=== PATIENT | male | born 1955 | race American Indian/Alaskan Native ===

== ENCOUNTER 2021-01-09 08:29 | Day surgery (SDC) | payer MEDICARE ==
[~2021-01-09 08:29] MED LIST: WATER FOR IRRIG STERILE 2000 ML IR ONE
[2021-01-09] MEDS ORDERED: ceFAZolin/STERILE WATER 2 GM/20 ML SYRINGE IV NR (09:00)
[2021-01-09] MEDS ORDERED: LACTATED RINGERS 1,000 ML ONE (09:06)
--- NOTE | 2021-01-09 09:10 | Anesthesia Day of Surgery ---
Anesthesia Day of Surgery - Day of Surgery Patient Examined: Yes Patient H&P Reviewed: Yes Patient is NPO: Yes
--- NOTE | 2021-01-09 09:10 | Anesthesia Consultation ---
Anesthesia Consult and Med Hx Date of service: 01/09/21 - Airway Anesthetic Teeth Evaluation: Partials (Many missing teeth) ROM Head & Neck: Adequate Mental/Hyoid Distance: Adequate Mallampati Class: Class I Intubation Access Assessment: Good - Pre-Operative Health Status ASA Pre-Surgery Classification: ASA2 Proposed Anesthetic Plan: General - Pulmonary Hx Smoking: Yes (QUIT 2008) Hx Respiratory Symptoms: No (+2FS) Hx Sleep Apnea: No (SNORES- HIGH ON TONYA PRESCREEN) - Cardiovascular System Hx Hypertension: Yes (White coat HTN; also has hip pain to increase BP) Hx Heart Attack/AMI: No - Central Nervous System Hx Seizures: No Hx Back Pain: Yes (BACK AND NECK ,2 BULGING DISC BACK) Hx Psychiatric Problems: No - Endocrine Hx End Stage Renal Disease: No - Hematic Hx Anemia: No Hx Sickle Cell Disease: No - Other Systems Hx Alcohol Use: No Hx Substance Use: No Hx Cancer: No (ELEVATED PSA.2018 BX PROSTATE NO CANCER)
[2021-01-09] MEDS ORDERED: LACTATED RINGERS 1,000 ML IV SCH (09:15)
[2021-01-09] MEDS ORDERED: propofoL 200 MG/20 ML VIAL IV ONE (09:24)
[2021-01-09] MEDS ORDERED: LIDOCAINE MPF (2%) 20 MG/1 ML VIAL 5 ML ONE (09:24)
[2021-01-09] MEDS ORDERED: MIDAZOLAM 2 MG/2 ML INJ IV NR (10:00)
[2021-01-09] MEDS ORDERED: ONDANSETRON 4 MG/2 ML INJ IV PRN (10:00)
[2021-01-09] MEDS ORDERED: HYDROmorphone 1 MG/1 ML INJ IV PRN (10:00)
[2021-01-09] MEDS ORDERED: WATER FOR IRRIG STERILE 2000 ML IR ONE (10:36)
[2021-01-09] MEDS ORDERED: ONDANSETRON 4 MG/2 ML INJ ONE (10:41)
--- NOTE | 2021-01-09 11:00 | Operative Report ---
DATE OF SURGERY: 01/09/2021 PREOPERATIVE DIAGNOSES: History of urethral stricture disease with obstructive urinary symptoms. POSTOPERATIVE DIAGNOSES: History of urethral stricture disease with obstructive urinary symptoms. OPERATIVE PROCEDURES: Cystoscopy, urethral dilation. ATTENDING: Gary Brandt MD ASSISTANTS: None. ANESTHESIA: General. SPECIMENS: None. COMPLICATIONS: None. DRAINS: None. ESTIMATED BLOOD LOSS: 5 mL. INDICATIONS FOR PROCEDURE: The patient is a 65-year-old man with a history of urethral stricture disease, who presented with worsening obstructive urinary symptoms. He was brought to the operating room for cystoscopy and urethral dilation and all other indicated procedures. DESCRIPTION OF PROCEDURE IN DETAIL: After induction of suitable anesthesia and proper positioning and preparation in the dorsal lithotomy position, a 22-Green[place]ic cystoscope was used to enter the urethra under direct visualization. At the bulbar/membranous urethra, an approximately 15-Green[place]ic urethral stricture was encountered. This was dilated with the cystoscope sheath. We were able to dilate this stricture with the sheath on its own. A wire was in place in case needed, which was not. We then completed the cystoscopic examination. There were no bladder or urethral mucosal lesions. The patient did also have an enlarged prostate with trilobar hypertrophy. He may also benefit from outlet reduction to help with his urinary symptoms. We will first see how he responds to this dilation to determine if outlet reduction would also help his obstructive urinary symptoms. Once complete, the cystoscope was removed and a [place] catheter was not placed. The patient was then awakened from anesthesia and transferred to the recovery room in stable condition. He tolerated the procedure well. He will return to the office in 2 weeks to reassess his symptoms and discuss next steps if needed. TID: [id number] RECEIPT: [id number] ROMMEL/CHAPIS
[2021-01-09] MEDS: HYDROmorphone 1 MG/1 ML INJ IV PRN ×2 (11:23→12:17)
--- NOTE | 2021-01-09 15:18 | XRay Report ---
ABDOMEN 1 VIEW(S) INDICATION / CLINICAL INFORMATION: URETHRAL STRICTURE. COMPARISON: None available. FINDINGS: TUBES / LINES: None. BOWEL GAS PATTERN: No significant abnormality. FREE AIR / EXTRALUMINAL GAS: None seen. ADDITIONAL FINDINGS: This exam was scheduled for retrograde urography. This was not performed. 2 seco nds of fluoroscopy time was utilized. 1 fluoroscopic image of the abdomen is presented. IMPRESSION: No significant abnormality. Signer Name: Pelon Campos Jr, MD Signed: 01/09/2021 3:14 PM Workstation Name: [id number]
--- NOTE | 2021-01-09 15:51 | Post Anesthesia Evaluation ---
- Post Anesthesia Evaluation Patient Participated: Yes Airway Patent: Yes Stable Respiratory Function: Yes Nausea/Vomiting: No Temp > 96.8F: Yes Pain Manageable: Yes Adequeate Hydration: Yes Anesthesia Complications: No Block Receding Appropriately: Not Applicable Patient on Ventilator: No
[2021-01-09 22:27] VITALS: BP 131/80
== END 2021-01-09 13:00 | disposition home or self-care (01) ==
LOC: OR 08:29
PROVIDERS: ATTEND Urology
DX: N35.919 Unspecified urethral stricture, male, unspecified site (principal); N40.1 Benign prostatic hyperplasia with lower urinary tract symptoms; Z20.822 Contact with and (suspected) exposure to COVID-19; I10 Essential (primary) hypertension; Z87.891 Personal history of nicotine dependence; Z79.899 Other long term (current) drug therapy; Z98.890 Other specified postprocedural states
CPT/HCPCS: 52281; 74018; A4217; C1769; J0690; J1170; J2250; J2405; J2704; J7120; U0003